=== PATIENT | female | born 1980 | race Caucasian/White ===

== ENCOUNTER 2016-10-07 20:09 | Inpatient (IN) | payer SELFPAY ==
[2016-10-07 20:37] VITALS: BMI 48.4
[2016-10-07 21:11] LABS: LEUKOCYTES/URINE 2+ (NEGATIVE); NITRITE/URINE NEG (NEGATIVE); URINE OCCULT BLOOD 3+ (NEG/TRACE)
[2016-10-07 21:12] LABS: RBC/URINE 20-30 (0-5)
[2016-10-07 21:12] LABS: BLOOD UREA NITROGEN 7 MG/DL (7-17); CALCIUM 8.8 MG/DL (8.4-10.2); CALCULATED OSMOLALITY 268 MOs/Kg (270-290); CHLORIDE 102 mEq/L (98-107); GLUCOSE 141 MG/DL (70-99); SODIUM LEVEL 139 mEq/L (137-146); TOTAL PROTEIN 7.6 G/DL (6.3-8.2)
--- NOTE | 2016-10-07 21:37 | DIRPT ---
CLINICAL DATA: Acute onset of generalized abdominal pain, constipation and difficulty with urination. Initial encounter. EXAM: DG ABDOMEN ACUTE W/ 1V CHEST COMPARISON: Chest and abdominal radiographs performed 06/30/2010, and chest radiograph performed 05/25/2016 FINDINGS: The lungs are well-aerated. Mild vascular congestion is noted. There is no evidence of focal opacification, pleural effusion or pneumothorax. The cardiomediastinal silhouette is within normal limits. The visualized bowel gas pattern is unremarkable. Scattered stool and air are seen within the colon; there is no evidence of small bowel dilatation to suggest obstruction. No free intra-abdominal air is identified on the provided upright view. No acute osseous abnormalities are seen; the sacroiliac joints are unremarkable in appearance. An intrauterine device is noted overlying the mid pelvis. IMPRESSION: 1. Mild vascular congestion noted. Lungs remain grossly clear. 2. Unremarkable bowel gas pattern; no free intra-abdominal air seen. Moderate amount of stool noted in the colon. Electronically Signed By: Rowdy Zheng M.D. On: 10/07/2016 21:34
[2016-10-07 21:40] LABS: SEG NEUTROPHIL 83 % (45-76)
[2016-10-07] MEDS ORDERED: ONDANSETRON HCL 4 MG/2 ML VIAL IV STA (22:49)
[2016-10-07] MEDS ORDERED: SODIUM CHLORIDE 0.9% 3 ML FLUSH FLUSH PRN (22:49)
[2016-10-07] MEDS ORDERED: MORPHINE 4 MG/ML INJECTION IV ONE (22:49)
[2016-10-07] MEDS ORDERED: NS 1,000 ML IV ONE (22:49)
--- NOTE | 2016-10-07 22:52 | EDPRACDOC ---
- General Information Chief Complaint: Abdominal Pain Stated Complaint: CONSTIPATION Time Seen by Provider: 10/07/16 22:35 Information Source: Patient Mode Of Arrival: Car Home Medications: Home Medications Albuterol Sulfate [Ventolin] 3 ml NEB TID PRN 10/10/12 Albuterol Sulfate [Albuterol Sulfate Hfa] 1 - 2 puff INH Q4H PRN #1 each Acetaminophen Ex Str Tablet [TYLENOL EXTRA STRENGTH Tablet] 1,000 mg PO Q6H PRN 05/25/16 Acetaminophen with Codeine [TYLENOL WITH CODEINE; [employer] with Codeine] 5 ml PO Q4-6H PRN #120 ml 05/25/16 Ibuprofen [Motrin Ib] 1,200 mg PO .PRN PRN 05/25/16 Levofloxacin [Levaquin] 750 mg PO DAILY #7 tab 05/25/16 Lorazepam [Ativan] 1 mg PO TID #30 tab 05/25/16 Nebulizer [Erapid Nebulizer] 1 each MC .UNKNOWN 05/25/16 Ondansetron HCl [Zofran] 4 mg PO Q6H PRN #20 tab 05/25/16 Prednisone [Deltasone, Orasone] 2 tabs PO DAILY #20 tab 05/25/16 Allergies/Adverse Reactions: Allergies Allergy/AdvReac Type Severity Reaction Status Date / Time doxycycline Allergy LIP Verified 05/25/16 13:36 SWELLING Penicillins Allergy Rash-Genera Verified 05/25/16 13:36 lized - 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 RECENTLY WAS CONSTIPATED SO TOOK LAXATIVE AT 1500 TODAY WITH RESULTANT DIARRHEA. Pain Location: Reports: Diffuse Pain Context: Reports: Spontaneous Pain Severity: Moderate Pain Quality: Reports: Aching Pain Radiation: Reports: No Radiation Last Menstrual Period: IUD : (IUD) Female Abdominal History: Reports: UTI Female Associated Signs & Symptoms: Reports: Nausea, Diarrhea, Melena. Denies: Vomiting, Fever Oral Intake: Decreased ED Past Medical History - History Reviewed Yes Nurses notes reviewed and agree except as marked - Patient Medical History Cardiac History: Reports: Syncope Respiratory History: Reports: Asthma (since 16 yo.), Pneumonia (Pneumonia 3 years ago) GI/ History: Reports: Urinary Tract Infection Musculoskeletal History: Reports: Arthritis (KNEE) Psychological History: Reports: Anxiety. Denies: Depression, Substance Use Disorder Systemic History: Reports: Diabetes (had borderline diabetes. DIET CONTROLLED) - Family Medical History Reports: Hypertension (Mother and father), Diabetes (Mother), Cancer (PARENTS), Stroke (Mother and father), Cardiac Disorders (Mother and father) - Social Medical History Smoking Status: Heavy tobacco smoker (5 or more cigarettes/day or daily pipe/ cigar) Social History: Denies: Substance Use Disorder Lives In: Home EDM Review of Systems - Review of Systems ROS Negative Except as Marked: Yes All systems reviewed and were negative except as marked Constitutional: Fatigue. negative: Fever Respiratory: negative: Shortness of Breath Cardiovascular: negative: Chest Pain Gastrointestinal: Diarrhea, Melena, Nausea, Pain. negative: Vomiting Genitourinary: Dysuria - Physical Exam Constitutional: Alert Oriented to: Time, Person, Place Last recorded Vital Signs: Last Vital Signs Temp 98.6 F 10/07/16 20:34 Pulse 102 10/07/16 23:30 Resp 18 10/07/16 23:30 BP 112/53 L 10/07/16 23:30 Pulse Ox 94 10/07/16 23:30 Oxygen Pulse Oxygen Saturation 94 O2 Device Room Air Oxygen Flow Rate Fraction of Inspired Oxygen ( FIO2) - HEENT Head: negative: Deformity, Laceration Eye Exam: negative: Conjunctival Injection, Pale Conjunctiva Oropharynx: negative: Membranes Dry Nose: negative: Congestion, Discharge Neck: negative: Limited ROM - Respiratory/Cardiovascular Respiratory: Normal - CTA. negative: Accessory Muscle Use, Diminished, Tachypnea Cardiovascular: negative: Bradycardia, Tachycardia, Irregular - GI Auscultation: Increased Palpation: Normal Tenderness: Diffuse, Mild. negative: Guarding, Rebound - Musculoskeletal Extremities: Radial Pulse (PALPABLE) - Integumentary Skin: Warm, Dry. negative: Rash - Neurologic Memory Impaired: Normal Motor Function: Normal Mood Description: Anxious Thought: Coherent Perception: Normal - Results 10/07/16 20:56 10/07/16 20:56 WBC 22.5 xk/uL (3.8-10.8) H 10/07/16 20:56 RBC 4.72 xM/uL (4.20-5.40) 10/07/16 20:56 Hgb 13.3 g/dL (12.0-16.0) 10/07/16 20:56 Hct 41.2 % (36-47) 10/07/16 20:56 MCV 87 fL (81-99) 10/07/16 20:56 MCH 28.2 pg (27-32) 10/07/16 20:56 MCHC 32.3 g/dl (33-36) L 10/07/16 20:56 RDW 13.8 % (11.5-14.5) 10/07/16 20:56 Plt Count 237 xk/uL (130-400) 10/07/16 20:56 MPV 10.0 fL (7.4-10.4) 10/07/16 20:56 Neut % (Auto) Cancelled 10/07/16 20:56 Lymph % (Auto) Cancelled 10/07/16 20:56 Becker % (Auto) Cancelled 10/07/16 20:56 Eos % (Auto) Cancelled 10/07/16 20:56 Baso % (Auto) Cancelled 10/07/16 20:56 Absolute Neuts (auto) Cancelled 10/07/16 20:56 Absolute Lymphs (auto) Cancelled 10/07/16 20:56 Seg Neuts % (Manual) 83 % (45-76) H 10/07/16 20:56 Band Neutrophils % 0 % (0-5) 10/07/16 20:56 Lymphocytes % (Manual) 10 % (17-44) L 10/07/16 20:56 Monocytes % (Manual) 5 % (0-10) 10/07/16 20:56 Eosinophils % (Manual) 2 % (0-5) 10/07/16 20:56 Absolute Neutrophils 18.68 xk/uL (1.7-8.2) H 10/07/16 20:56 Absolute Lymphocytes 2.25 xk/uL (0.65-4.75) 10/07/16 20:56 Vacuolated Neuts Few 10/07/16 20:56 Platelet Estimate Norm (NORMAL) 10/07/16 20:56 RBC Morphology Norm 10/07/16 20:56 Sodium 139 mEq/L (137-146) 10/07/16 20:56 Potassium 4.0 mEq/L (3.5-5.1) 10/07/16 20:56 Chloride 102 mEq/L (98-107) 10/07/16 20:56 Carbon Dioxide 26 mMOL/L (22-33) 10/07/16 20:56 Anion Gap 15 mEq/L (8-16) 10/07/16 20:56 BUN 7 MG/DL (7-17) 10/07/16 20:56 Creatinine 0.50 MG/DL (0.52-1.04) L 10/07/16 20:56 Estimated GFR (MDRD) > 60 mL/min (>=60) 10/07/16 20:56 Glucose 141 MG/DL (70-99) H 10/07/16 20:56 Calculated Osmolality 268 MOs/Kg (270-290) L 10/07/16 20:56 Calcium 8.8 MG/DL (8.4-10.2) 10/07/16 20:56 Corrected Calcium 9.0 MG/DL (8.4-10.2) 10/07/16 20:56 Total Bilirubin 0.3 MG/DL (0.2-1.3) 10/07/16 20:56 AST 12 IU/L (14-36) L 10/07/16 20:56 ALT 23 IU/L (9-52) 10/07/16 20:56 Alkaline Phosphatase 84 IU/L (38-126) 10/07/16 20:56 Total Protein 7.6 G/DL (6.3-8.2) 10/07/16 20:56 Albumin 3.8 G/DL (3.5-5.0) 10/07/16 20:56 Lipase 19 U/L (23-300) L 10/07/16 20:56 Urine Color Yellow 10/07/16 20:45 Urine Clarity Sl cldy 10/07/16 20:45 Urine pH 7.0 (5.0-8.0) 10/07/16 20:45 Ur Specific Wilson 1.015 (1.003-1.035) 10/07/16 20:45 Urine Protein 1+ (NEG/TRACE) H 10/07/16 20:45 Urine Glucose (UA) Neg (NEGATIVE) 10/07/16 20:45 Urine Ketones Neg (NEGATIVE) 10/07/16 20:45 Urine Occult Blood 3+ (NEG/TRACE) H 10/07/16 20:45 Urine Nitrite Neg (NEGATIVE) 10/07/16 20:45 Urine Bilirubin Neg (NEGATIVE) 10/07/16 20:45 Urine Urobilinogen 2 MG/DL (0-1) H 10/07/16 20:45 Ur Leukocyte Esterase 2+ (NEGATIVE) H 10/07/16 20:45 Urine RBC 20-30 (0-5) H 10/07/16 20:45 Urine WBC 10-20 (0-5) H 10/07/16 20:45 Ur Epithelial Cells 4+ 10/07/16 20:45 Urine Bacteria Few (NEG/FEW) 10/07/16 20:45 Urine Mucus Occ (NEG/OCC) 10/07/16 20:45 Urine Test Neg (NEGATIVE) 10/07/16 20:45 Lab Results 10/07/16 10/07/16 10/07/16 20:56 20:56 20:45 WBC 22.5 H RBC 4.72 Hgb 13.3 Hct 41.2 MCV 87 MCH 28.2 MCHC 32.3 L RDW 13.8 Plt Count 237 MPV 10.0 Neut % (Auto) Cancelled Lymph % (Auto) Cancelled Becker % (Auto) Cancelled Eos % (Auto) Cancelled Baso % (Auto) Cancelled Absolute Neuts (auto) Cancelled Absolute Lymphs (auto) Cancelled Seg Neuts % (Manual) 83 H Band Neutrophils % 0 Lymphocytes % (Manual) 10 L Monocytes % (Manual) 5 Eosinophils % (Manual) 2 Absolute Neutrophils 18.68 H Absolute Lymphocytes 2.25 Vacuolated Neuts Few Platelet Estimate Norm RBC Morphology Norm Sodium 139 Potassium 4.0 Chloride 102 Carbon Dioxide 26 Anion Gap 15 BUN 7 Creatinine 0.50 L Estimated GFR (MDRD) > 60 Glucose 141 H Calculated Osmolality 268 L Calcium 8.8 Corrected Calcium 9.0 Total Bilirubin 0.3 AST 12 L ALT 23 Alkaline Phosphatase 84 Total Protein 7.6 Albumin 3.8 Lipase 19 L Urine Color Yellow Urine Clarity Sl cldy Urine pH 7.0 Ur Specific Wilson 1.015 Urine Protein 1+ H Urine Glucose (UA) Neg Urine Ketones Neg Urine Occult Blood 3+ H Urine Nitrite Neg Urine Bilirubin Neg Urine Urobilinogen 2 H Ur Leukocyte Esterase 2+ H Urine RBC 20-30 H Urine WBC 10-20 H Ur Epithelial Cells 4+ Urine Bacteria Few Urine Mucus Occ Urine Test 10/07/16 20:45 WBC RBC Hgb Hct MCV MCH MCHC RDW Plt Count MPV Neut % (Auto) Lymph % (Auto) Becker % (Auto) Eos % (Auto) Baso % (Auto) Absolute Neuts (auto) Absolute Lymphs (auto) Seg Neuts % (Manual) Band Neutrophils % Lymphocytes % (Manual) Monocytes % (Manual) Eosinophils % (Manual) Absolute Neutrophils Absolute Lymphocytes Vacuolated Neuts Platelet Estimate RBC Morphology Sodium Potassium Chloride Carbon Dioxide Anion Gap BUN Creatinine Estimated GFR (MDRD) Glucose Calculated Osmolality Calcium Corrected Calcium Total Bilirubin AST ALT Alkaline Phosphatase Total Protein Albumin Lipase Urine Color Urine Clarity Urine pH Ur Specific Wilson Urine Protein Urine Glucose (UA) Urine Ketones Urine Occult Blood Urine Nitrite Urine Bilirubin Urine Urobilinogen Ur Leukocyte Esterase Urine RBC Urine WBC Ur Epithelial Cells Urine Bacteria Urine Mucus Urine Test Neg - Departure Yes I personally saw and evaluated the patient. Disposition: Admit IP To This Hospital Condition: Stable Final Diagnosis: Abscess of sigmoid colon Instructions: Acute Abdominal Pain (ED)
[2016-10-07] MEDS ORDERED: Pharmacy Review for Metformin - IV Contrast Given SCH (23:00)
[2016-10-08] MEDS ORDERED: Metronidazole 500 mg/100 ml 500 MG/100 ML RTU IV ONE (00:32)
--- NOTE | 2016-10-08 00:35 | DIRPT ---
CLINICAL DATA: Acute onset of generalized abdominal pain and rectal bleeding. No bowel movements for 1 week. Initial encounter. EXAM: CT ABDOMEN AND PELVIS WITH CONTRAST TECHNIQUE: Multidetector CT imaging of the abdomen and pelvis was performed using the standard protocol following bolus administration of intravenous contrast. CONTRAST: 100 mL of Isovue 370 IV contrast COMPARISON: Pelvic ultrasound performed 09/30/2010 FINDINGS: The visualized lung bases are clear. The liver and spleen are unremarkable in appearance. The gallbladder is within normal limits. The pancreas and adrenal glands are unremarkable. A small 3 mm stone is noted at the lower pole of the left kidney. The kidneys are otherwise unremarkable. There is no evidence of hydronephrosis. No obstructing ureteral stones are seen. No perinephric stranding is appreciated. The small bowel is unremarkable in appearance. The stomach is within normal limits. No acute vascular abnormalities are seen. Diffuse soft tissue inflammation is noted about the distal sigmoid colon and rectum, with diffuse presacral stranding and edema. There is a small focal 3.6 x 2.8 x 3.5 cm abscess noted at the pelvic cul-de-sac, directly adjacent to the distal sigmoid colon. It is difficult to determine whether this is outside of the colon or within the colonic wall. Given its location, this would not be amenable to percutaneous drainage. This could reflect sequelae of diverticulitis or unusual colitis. Minimal soft tissue inflammation extends about the ovaries and uterus, though the uterus is otherwise grossly unremarkable. An intrauterine device is noted in expected position at the fundus of the uterus. The appendix is not well characterized. There is no evidence of appendicitis. Mild diverticulosis is noted along the descending and proximal sigmoid colon. The bladder is mildly distended and grossly unremarkable. No inguinal lymphadenopathy is seen. No acute osseous abnormalities are identified. IMPRESSION: 1. Small focal 3.6 x 2.8 x 3.5 cm abscess at the pelvic cul-de-sac, directly adjacent to the distal sigmoid colon. It is difficult to determine whether this is outside the colon or within the colonic wall. Given its location, this would not be amenable to percutaneous drainage, though transrectal approach could be considered if drainage is deemed clinically necessary. 2. Diffuse soft tissue inflammation about the distal sigmoid colon and rectum, with diffuse presacral stranding and edema. This could reflect sequelae of diverticulitis or unusual colitis. Minimal soft tissue inflammation extends about the ovaries and uterus. 3. 3 mm nonobstructing stone at the lower pole of the left kidney. 4. These results were called by telephone at the time of interpretation on 10/08/2016 at 12:[address] MARYAM GRANADOS, who verbally acknowledged these results. Electronically Signed By: Rowdy Zheng M.D. On: 10/08/2016 00:33
[2016-10-08] MEDS ORDERED: NS 1,000 ML IV ONE (00:47)
[2016-10-08] MEDS ORDERED: Levofloxacin 750 mg/150 ml D5W 750 MG/150 ML RTU IV ONE (00:49)
[2016-10-08] MEDS ORDERED: Albuterol/Ipratropium Neb 3 ML NEB NEB PRN (01:40)
[2016-10-08] MEDS ORDERED: GLUCAGON 1 MG VIAL SQ PRN (01:40)
[2016-10-08] MEDS ORDERED: GLUCOSE (ORAL GEL) 15 GM TUBE PO PRN (01:40)
[2016-10-08] MEDS ORDERED: DEXTROSE 25 GM/50 ML PFS IV PRN (01:40)
[2016-10-08] MEDS ORDERED: BENZONATATE 100 MG PERLES PO PRN (01:40)
[2016-10-08] MEDS ORDERED: GUAIFENESIN 200 MG/10 ML UDC PO PRN (01:40)
--- NOTE | 2016-10-08 01:40 | HISTPHYS ---
- Chief Complaint abdominal pain - History of Present Illness Ms Montelongo is a 35-year-old white female with history of obesity who presents to the emergency room with complaint of abdominal pain and feelings of constipation. She takes no medications regularly other than smoking marijuana for anxiety and denies any significant chronic medical problems. She was recently treated with antibiotics for an episode of bronchitis approximately 2 weeks ago. She initially had some diarrhea after the antibiotics but over the last week she has mostly had problems with constipation. She took some laxatives yesterday with no relief and her pain persisted so she decided to come to the emergency room. In the emergency room she was found to have a 3 x 3 cm abscess in her distal sigmoid colon. It is unclear whether this abscess is within the colonic wall or outside the colon. They did feel that it was not amenable to percutaneous drainage. She has an elevated white count of 22 and given her pain and abscess she will be admitted to the hospital for IV antibiotics and surgical consultation. - Medical History Cardiac History: Reports: Syncope Respiratory History: Reports: Asthma (since 16 yo.), Pneumonia (Pneumonia 3 years ago) GI/ History: Reports: Urinary Tract Infection Musculoskeletal History: Reports: Arthritis (KNEE) Systemic History: Reports: Diabetes (Diet control) Neurological History: Reports: No Significant History Psychological History: Reports: Anxiety. Denies: Depression, Substance Use Disorder - Surgical History Reports: No Significant History - Medictions/Allergies Allergies doxycycline Allergy (Verified 05/25/16 13:36) LIP SWELLING Penicillins Allergy (Verified 05/25/16 13:36) Rash-Generalized PT STATES PENICILLIN DOES NOT HELP HER GET BETTER Current Medication List: Reviewed Home Medications Albuterol Sulfate [Ventolin] 3 ml NEB TID PRN 10/10/12 Albuterol Sulfate [Albuterol Sulfate Hfa] 1 - 2 puff INH Q4H PRN #1 each Acetaminophen Ex Str Tablet [TYLENOL EXTRA STRENGTH Tablet] 1,000 mg PO Q6H PRN 05/25/16 Acetaminophen with Codeine [TYLENOL WITH CODEINE; [employer] with Codeine] 5 ml PO Q4-6H PRN #120 ml 05/25/16 Ibuprofen [Motrin Ib] 1,200 mg PO .PRN PRN 05/25/16 Levofloxacin [Levaquin] 750 mg PO DAILY #7 tab 05/25/16 Lorazepam [Ativan] 1 mg PO TID #30 tab 05/25/16 Nebulizer [Erapid Nebulizer] 1 each MC .UNKNOWN 05/25/16 Ondansetron HCl [Zofran] 4 mg PO Q6H PRN #20 tab 05/25/16 Prednisone [Deltasone, Orasone] 2 tabs PO DAILY #20 tab 05/25/16 - Family History Reports: Hypertension (Mother and father), Diabetes (Mother), Cancer (PARENTS), Stroke (Mother and father), Cardiac Disorders (Mother and father) - Social History Lives: Alone Smoking Status: Light tobacco smoker (less than 5/day) Social History: Denies: Alcohol Use, Substance Use Disorder - Review of Systems Yes All systems reviewed and were negative except as marked Constitutional: Fatigue, Loss of Appetite, Weakness. negative: Fever - Eyes No Symptoms Reported. negative: Blurred Vision, Double Vision, Discharge, Redness, Vision Loss - Ears No Symptoms Reported. negative: Drainage, Hearing Loss, Pain - Nose No Symptoms Reported. negative: Abrasion, Bleeding, Congestion - Mouth Mouth: No Symptoms Reported. negative: Pain, Drooling, Denture, Tooth Pain, Erythema - Throat/Neck No Symptoms Reported. negative: Pain, Swelling, Hoarseness, Snoring - Respiratory Cough. negative: Shortness of Breath, Wheezing - Cardiovascular No Symptoms Reported. negative: Chest Pain, Orthopnea, Palpitations - Gastrointestinal Gastrointestinal: Abdominal Pain, Constipation - Genitourinary Genitourinary: No Symptoms Reported. negative: Bleeding, Dysuria, Discharge - Neurological No Symptoms Reported. negative: Dizziness, Gait Difficulty, Seizure, Speech Difficulty - Musculoskeletal Musculoskeletal:: No Symptoms Reported. negative: Chronic low back pain, Arthritis, Stiffness, Gout - Integumentary No Symptoms Reported. negative: Bruising, Rash, Wound - Allergic/Immunologic No Symptoms Reported. negative: Hives, Itching - Hematologic No Symptoms Reported. negative: Lymphadenopathy, Easy Bruising, Easy Bleeding - Endocrine No Symptoms Reported. negative: Weight Gain, Weight Loss, Heat Intolerance, Cold Intolerance - Psychiatric Anxiety - Physical Exam Constitutional: No apparent distress, Alert, Well nourished, Well appearing Oriented to: Time, Person, Place Exam: Last Vital Signs Temp 98.6 F 10/07/16 20:34 Pulse 93 10/08/16 00:30 Resp 18 10/08/16 00:30 BP 120/56 L 10/08/16 00:30 Pulse Ox 98 10/08/16 00:30 Intake & Output 10/07/16 10/07/16 10/08/16 15:59 23:59 07:59 Patient's weight 116.301 kg - HEENT Head: Normal. negative: Deformity, Laceration Eye: Normal. negative: Conjunctival Injection, Pale Conjunctiva Oropharynx: Normal. negative: Membranes Dry Nose: negative: Congestion, Discharge - Respiratory/Cardiovascular Respiratory: Normal - CTA. negative: Accessory Muscle Use, Diminished, Rhonchi , Tachypnea, Wheezes Cardiovascular: Tachycardia - GI Auscultation: Increased Palpation: Normal Tenderness: Moderate, LLQ. negative: Guarding, Rebound - Musculoskeletal Back: Normal. negative: Abrasion, Ecchymosis Extremities: Normal, Femoral Pulse, Pedal Pulse, Radial Pulse (PALPABLE). negative: Calf Tenderness - Integumentary Skin: Normal, Warm, Dry. negative: Rash Lymphatics: Normal. negative: Adenopathy - Neurologic Memory Impaired: Normal Motor Function: Normal Cranial Nerve: Normal Cerebellar: Normal Mood Description: Anxious Thought: Coherent Perception: Normal - Focused CV Perfusion Exam Vital Signs: Last Vital Signs Temp 98.6 F 10/07/16 20:34 Pulse 93 10/08/16 00:30 Resp 18 10/08/16 00:30 BP 120/56 L 10/08/16 00:30 Pulse Ox 98 10/08/16 00:30 - Lab Results Laboratory Results - last 24 hr 10/07/16 10/07/16 10/07/16 20:45 20:45 20:56 WBC RBC Hgb Hct MCV MCH MCHC RDW Plt Count MPV Neut % (Auto) Lymph % (Auto) Addison % (Auto) Eos % (Auto) Baso % (Auto) Absolute Neuts (auto) Absolute Lymphs (auto) Seg Neuts % (Manual) Band Neutrophils % Lymphocytes % (Manual) Monocytes % (Manual) Eosinophils % (Manual) Absolute Neutrophils Absolute Lymphocytes Vacuolated Neuts Platelet Estimate RBC Morphology Sodium 139 Potassium 4.0 Chloride 102 Carbon Dioxide 26 Anion Gap 15 BUN 7 Creatinine 0.50 L Estimated GFR (MDRD) > 60 Glucose 141 H Calculated Osmolality 268 L Calcium 8.8 Corrected Calcium 9.0 Total Bilirubin 0.3 AST 12 L ALT 23 Alkaline Phosphatase 84 Total Protein 7.6 Albumin 3.8 Lipase 19 L Urine Color Yellow Urine Clarity Sl cldy Urine pH 7.0 Ur Specific [place] 1.015 Urine Protein 1+ H Urine Glucose (UA) Neg Urine Ketones Neg Urine Occult Blood 3+ H Urine Nitrite Neg Urine Bilirubin Neg Urine Urobilinogen 2 H Ur Leukocyte Esterase 2+ H Urine RBC 20-30 H Urine WBC 10-20 H Ur Epithelial Cells 4+ Urine Bacteria Few Urine Mucus Occ Urine Test Neg 10/07/16 20:56 WBC 22.5 H RBC 4.72 Hgb 13.3 Hct 41.2 MCV 87 MCH 28.2 MCHC 32.3 L RDW 13.8 Plt Count 237 MPV 10.0 Neut % (Auto) Cancelled Lymph % (Auto) Cancelled Addison % (Auto) Cancelled Eos % (Auto) Cancelled Baso % (Auto) Cancelled Absolute Neuts (auto) Cancelled Absolute Lymphs (auto) Cancelled Seg Neuts % (Manual) 83 H Band Neutrophils % 0 Lymphocytes % (Manual) 10 L Monocytes % (Manual) 5 Eosinophils % (Manual) 2 Absolute Neutrophils 18.68 H Absolute Lymphocytes 2.25 Vacuolated Neuts Few Platelet Estimate Norm RBC Morphology Norm Sodium Potassium Chloride Carbon Dioxide Anion Gap BUN Creatinine Estimated GFR (MDRD) Glucose Calculated Osmolality Calcium Corrected Calcium Total Bilirubin AST ALT Alkaline Phosphatase Total Protein Albumin Lipase Urine Color Urine Clarity Urine pH Ur Specific [place] Urine Protein Urine Glucose (UA) Urine Ketones Urine Occult Blood Urine Nitrite Urine Bilirubin Urine Urobilinogen Ur Leukocyte Esterase Urine RBC Urine WBC Ur Epithelial Cells Urine Bacteria Urine Mucus Urine Test - Assessment (1) Abscess of sigmoid colon K63.0 - ABSCESS OF INTESTINE Acute Present on Admission: Yes Admit. IV Levaquin and Flagyl. Will have surgery see in consultation. Morphine as needed for pain. (2) Abdominal pain R10.9 - UNSPECIFIED ABDOMINAL PAIN Acute Present on Admission: Yes Qualifiers: Abdominal location: left lower quadrant Qualified Code(s): R10.32 - Left lower quadrant pain From diverticular abscess. IV morphine as needed. Treat infection (3) Diet-controlled diabetes mellitus E11.9 - TYPE 2 DIABETES MELLITUS WITHOUT COMPLICATIONS Acute Present on Admission: Yes Would greatly benefit from weight loss. Blood sugars are relatively stable here. Will check hemoglobin A1c. She is going to be on a full liquid low carb diet (4) Morbid obesity with BMI of 45.0-49.9, adult E66.01 - MORBID (SEVERE) OBESITY DUE TO EXCESS CALORIES; Z68.42 - BODY MASS INDEX (BMI) 45.0-49.9, ADULT Acute Present on Admission: Yes Counseled proper diet and weight loss. (5) Anxiety F41.9 - ANXIETY DISORDER, UNSPECIFIED Acute Present on Admission: Yes Smokes marijuana for this. P.r.n. anxiolytics (6) Leukocytosis D72.829 - ELEVATED WHITE BLOOD CELL COUNT, UNSPECIFIED Acute Present on Admission: Yes Qualifiers: Leukocytosis type: unspecified Qualified Code(s): D72.829 - Elevated white blood cell count, unspecified White blood cell count is significantly elevated. She has not been on steroids recently so I suspect that this is all related to infection. Case Care Discussed with: Patient
[2016-10-08] MEDS ORDERED: ENOXAPARIN 40 MG/0.4 ML PFS SQ SCH (02:00)
[2016-10-08] MEDS: MORPHINE 2 MG/ML INJECTION IV PRN ×6 (02:39→23:07)
[2016-10-08] MEDS: NS/KCl 20 mEq 1,000 ML IV SCH ×4 (03:25→22:05)
[2016-10-08] MEDS ORDERED: Vaccine Screening Complete SCH (04:00)
[2016-10-08] MEDS: SODIUM CHLORIDE 0.9% 3 ML FLUSH FLUSH SCH ×2 (06:41→16:59)
[2016-10-08] MEDS: NICOTINE 21 MG PATCH TOP SCH (06:41)
[2016-10-08] MEDS: REGULAR INSULIN 100 UNITS/ML - 3 ML VIAL SQ SCH ×4 (06:42→20:23)
[2016-10-08] MEDS: Metronidazole 500 mg/100 ml 500 MG/100 ML RTU IV SCH ×2 (08:30→16:59)
--- NOTE | 2016-10-08 08:32 | PCM.SURGCO ---
Consultation Date: 10/08/16 Requesting Physician: Gurinder Bañuelos Bending Frame Operator: Favio Amezcua Consult Reason: Abdominal Pain, Other (Pelvic abscess) - History of Present Illness 35-year-old female with history of morbid obesity who presented the emergency department with abdominal pain and a feeling of fullness and constipation. She reportedly does not take medications or is noncompliant with her medications. She does smoke marijuana to "help me sleep". She also states that she has some anxiety issues. She was on an antibiotic for a sinus infection/bronchitis recently. She developed some diarrhea which subsequently turned into constipation. She feels a pressure in her pelvic area and some pain. She had no fevers. She has no nausea or vomiting. She is not anorexic. She decided to come to the emergency department for evaluation. Evaluation there revealed a leukocytosis and also CT scan of the abdomen pelvis revealed an approximately 3 cm abscess in the presacral area. It was felt that this was not amenable to percutaneous drainage. Patient has multiple comorbid conditions and she was subsequently admitted to the medicine service with surgical consultation to me. Patient is feeling better than upon her original presentation. She states her pain is much less. Pain medication makes the pain better. Try to have a bowel movement makes the pain worse. Chief Complaint: abdominal pain - Past Medical and Surgical History Cardiac History: Reports: Syncope Respiratory History: Reports: Asthma (since 16 yo.), Pneumonia (Pneumonia 3 years ago) GI/ History: Reports: Urinary Tract Infection Musculoskeletal History: Reports: Arthritis (KNEE) Psychological History: Reports: Anxiety. Denies: Depression Past Surgical History: Reports: Appendectomy, Other (Surgery for an ACL tear) Allergies doxycycline Allergy (Verified 05/25/16 13:36) LIP SWELLING Penicillins Allergy (Verified 05/25/16 13:36) Rash-Generalized PT STATES PENICILLIN DOES NOT HELP HER GET BETTER Home Medications Albuterol Sulfate [Ventolin] 3 ml NEB TID PRN 10/10/12 Albuterol Sulfate [Albuterol Sulfate Hfa] 1 - 2 puff INH Q4H PRN #1 each Acetaminophen Ex Str Tablet [TYLENOL EXTRA STRENGTH Tablet] 1,000 mg PO Q6H PRN 05/25/16 Acetaminophen with Codeine [TYLENOL WITH CODEINE; [employer] with Codeine] 5 ml PO Q4-6H PRN #120 ml 05/25/16 Ibuprofen [Motrin Ib] 1,200 mg PO .PRN PRN 05/25/16 Levofloxacin [Levaquin] 750 mg PO DAILY #7 tab 05/25/16 Lorazepam [Ativan] 1 mg PO TID #30 tab 05/25/16 Nebulizer [Erapid Nebulizer] 1 each MC .UNKNOWN 05/25/16 Ondansetron HCl [Zofran] 4 mg PO Q6H PRN #20 tab 05/25/16 Prednisone [Deltasone, Orasone] 2 tabs PO DAILY #20 tab 05/25/16 - Social History Smoking Status: Light tobacco smoker (less than 5/day) Social History: Reports: Marijuana Use - Family History Reports: Hypertension (Mother and father), Diabetes (Mother), Cancer (PARENTS), Stroke (Mother and father), Cardiac Disorders (Mother and father) - Review of Systems Yes All systems reviewed and were negative except as marked Gastrointestinal: Abdominal Pain, Constipation - Physical Exam Vital Signs: Initial Vitals Temperature 98.6 F 10/07/16 20:34 Pulse Rate 99 10/07/16 20:34 Respiratory Rate 20 10/07/16 20:34 Blood Pressure 155/70 10/07/16 20:34 Pulse Oxygen Saturation 99 10/07/16 20:34 Exam: General: Pleasant female No acute distress. HEENT: Normocephalic atraumatic. Sclerae nonicteric. Extraocular movements intact. Oral mucosa pink and moist. Neck: Supple. Nontender. Good range of motion. No masses. Trachea is midline. No cervical adenopathy. Lungs: Clear to auscultation. No rhonchi or wheezing. Good excursion. Heart: Regular rate and rhythm. No murmurs or rubs. Abdomen: Soft, morbidly obese, nondistended. No hepatosplenomegaly. No abdominal wall defects or masses. No particular tenderness on her abdominal exam today. Groins: No hernias or masses. Back: No CVA tenderness. No ecchymosis. Extremities: no cyanosis clubbing or edema. No palpable deformities. Vascular: Dorsalis pedis and posterior tibial pulses palpable bilaterally. Skin: Warm and dry, no erythema , no ulcerations. No jaundice - Lab Results 10/07/16 20:56 10/07/16 20:56 - Diagnostic Findings EXAM: CT ABDOMEN AND PELVIS WITH CONTRAST TECHNIQUE: Multidetector CT imaging of the abdomen and pelvis was performed using the standard protocol following bolus administration of intravenous contrast. CONTRAST: 100 mL of Isovue 370 IV contrast COMPARISON: Pelvic ultrasound performed 09/30/2010 FINDINGS: The visualized lung bases are clear. The liver and spleen are unremarkable in appearance. The gallbladder is within normal limits. The pancreas and adrenal glands are unremarkable. A small 3 mm stone is noted at the lower pole of the left kidney. The kidneys are otherwise unremarkable. There is no evidence of hydronephrosis. No obstructing ureteral stones are seen. No perinephric stranding is appreciated. The small bowel is unremarkable in appearance. The stomach is within normal limits. No acute vascular abnormalities are seen. Diffuse soft tissue inflammation is noted about the distal sigmoid colon and rectum, with diffuse presacral stranding and edema. There is a small focal 3.6 x 2.8 x 3.5 cm abscess noted at the pelvic cul-de-sac, directly adjacent to the distal sigmoid colon. It is difficult to determine whether this is outside of the colon or within the colonic wall. Given its location, this would not be amenable to percutaneous drainage. This could reflect sequelae of diverticulitis or unusual colitis. Minimal soft tissue inflammation extends about the ovaries and uterus, though the uterus is otherwise grossly unremarkable. An intrauterine device is noted in expected position at the fundus of the uterus. The appendix is not well characterized. There is no evidence of appendicitis. Mild diverticulosis is noted along the descending and proximal sigmoid colon. The bladder is mildly distended and grossly unremarkable. No inguinal lymphadenopathy is seen. No acute osseous abnormalities are identified. IMPRESSION: 1. Small focal 3.6 x 2.8 x 3.5 cm abscess at the pelvic cul-de-sac, directly adjacent to the distal sigmoid colon. It is difficult to determine whether this is outside the colon or within the colonic wall. Given its location, this would not be amenable to percutaneous drainage, though transrectal approach could be considered if drainage is deemed clinically necessary. 2. Diffuse soft tissue inflammation about the distal sigmoid colon and rectum, with diffuse presacral stranding and edema. This could reflect sequelae of diverticulitis or unusual colitis. Minimal soft tissue inflammation extends about the ovaries and uterus. 3. 3 mm nonobstructing stone at the lower pole of the left kidney. 4. These results were called by telephone at the time of interpretation on 10/08/2016 at 12:[address] MARYAM GRANADOS, who verbally acknowledged these results. Electronically Signed By: Rowdy Zheng M.D. On: 10/08/2016 00:33 - Assessment/Plan (1) Pelvic abscess in female N73.9 - FEMALE PELVIC INFLAMMATORY DISEASE, UNSPECIFIED Acute Present on Admission: Yes Comment: The exact etiology of her abscess is unclear. Would direct treatment toward the abscess currently which would consist of IV antibiotics. Will discuss further with interventional Radiology to see if this is truly not amenable to percutaneous drainage. I would not suggest transrectal drainage. If this is not amenable to percutaneous drainage, would recommend continue a course of antibiotics and reassessing clinically and radiographically. If the abscess resolves then she can simply be followed up as an outpatient. If the abscess and margins and is amenable to percutaneous drainage, could consider percutaneous drainage by Interventional Radiology. If the abscess and margins which she clinically deteriorates, could consider surgical intervention with open or laparoscopic drainage of the pelvic abscess. It is unclear of the exact etiology of the abscess. Diverticular disease of the colon is a possibility as is colitis from an antibiotic induced colitis. Abscess of a gynecologic origin is also a possibility. The patient was in stable condition at the time of this dictation. She is not toxic currently. Recommend continue conservative management at this time. (2) Morbid obesity with BMI of 45.0-49.9, adult E66.01 - MORBID (SEVERE) OBESITY DUE TO EXCESS CALORIES; Z68.42 - BODY MASS INDEX (BMI) 45.0-49.9, ADULT Chronic Present on Admission: Yes Comment: Increases her risk for any perioperative or periprocedural complications. Weight loss is highly recommended. (3) Leukocytosis D72.829 - ELEVATED WHITE BLOOD CELL COUNT, UNSPECIFIED Acute Present on Admission: Yes unspecified D72.829 - Elevated white blood cell count, unspecified Comment: Likely due to the infectious process in this patient's pelvic area. Other etiologies are possible. Continue follow white blood cell count. Continue antibiotics currently. (4) Abscess of sigmoid colon K63.0 - ABSCESS OF INTESTINE Acute Present on Admission: Yes Comment: This could certainly be the etiology of her abscess. The exact etiology is not known at this time. Continue medical management of the pelvic/sigmoid abscess at this time. Case Care Discussed with: Patient, Consultants
[2016-10-08] MEDS: ONDANSETRON HCL 4 MG/2 ML VIAL IV PRN ×2 (10:35→18:31)
[2016-10-08] MEDS: ENOXAPARIN 60 MG/0.6 ML PFS SQ SCH (16:58)
[2016-10-09] MEDS: Metronidazole 500 mg/100 ml 500 MG/100 ML RTU IV SCH ×5 (00:07→23:36)
[2016-10-09] MEDS: ONDANSETRON HCL 4 MG/2 ML VIAL IV PRN ×2 (00:12→19:54)
[2016-10-09] MEDS: ZOLPIDEM TARTRATE 5 MG TAB PO PRN ×2 (00:12→23:43)
[2016-10-09] MEDS: Levofloxacin 750 mg/150 ml D5W 750 MG/150 ML RTU IV SCH (01:37)
[2016-10-09] MEDS: NS/KCl 20 mEq 1,000 ML IV SCH ×5 (03:45→16:45)
[2016-10-09] MEDS: NICOTINE 21 MG PATCH TOP SCH (06:24)
[2016-10-09] MEDS: REGULAR INSULIN 100 UNITS/ML - 3 ML VIAL SQ SCH ×4 (06:25→21:00)
[2016-10-09] MEDS: SODIUM CHLORIDE 0.9% 3 ML FLUSH FLUSH SCH ×2 (06:25→16:45)
[2016-10-09 07:29] LABS: MPV 10.3 fL (7.4-10.4)
--- NOTE | 2016-10-09 08:07 | GENMEDPROG ---
Chief Complaint: food floats p eating c/o llq pressure is better Notes Reviewed: Yes Events from last night noted and discussed with Clinical Staff Current Medication List: Reviewed DVT Prophylaxis: Yes - Physical Examination Vital Signs and I&O: Last Vital Signs Temp 98.3 F 10/09/16 05:42 Pulse 87 10/09/16 05:42 Resp 20 10/09/16 05:42 BP 112/66 10/09/16 05:42 Pulse Ox 96 10/09/16 05:42 Oxygen Pulse Oxygen Saturation 96 O2 Device Room Air Oxygen Flow Rate Fraction of Inspired Oxygen ( FIO2) Intake & Output 10/06/16 10/07/16 10/08/16 10/09/16 23:59 23:59 23:59 23:59 Intake Total 5140 950 Output Total 1125 900 Balance 4015 50 Patient's weight 114.078 kg 114.419 kg General: Alert, Oriented x3, No acute distress, Well appearing, Well nourished HEENT: Normal (Normocephalic, atraumatic;EOMI.Sclera white, Nares patent, without discharge or bleeding. No oropharyngeal lesions or erythema. Mucous membranes are dry.) Neck: Non-tender, Full range of motion, Normal Trachea alignment, Normal inspection (No cervical lymphadenopathy. No supraclavicular lymphadenopathy.), No Masses palpable, Supple Lymphatics: Normal. negative: Adenopathy Respiratory: Normal - CTA. negative: Accessory Muscle Use, Diminished, Rhonchi , Tachypnea, Wheezes Cardiovascular: Regular rate and rhythm (No bradycardia or tachycardia), Normal S1, No Gallops,Rubs/Murmurs, Normal S2, Good Pedal Pulses (DP pulses 2+ bilaterally) GI: Normal bowel sounds, Soft, No hepatospenomegaly, No masses, Obese (Morbid obesity BMI 47.7), Tenderness (LLQ TENDER) Extremities/Musculoskeletal: Normal pulses (DP pulses 2+ bilaterally) Skin: Warm,Dry and Intact, No rashes, No significant lesion Neurological: Strength at 5/5 X4 ext (Motor 5/5 throughout.), Normal tone, Cranial nerves 3-12 NL ( 2-12 grossly intact.) Psych/Mental Status: Appropriate, Normal Affect Lab/DI/Studies Reviewed: 10/09/16 07:01 10/09/16 07:01 Laboratory Results - last 24 hr 10/08/16 10/08/16 10/08/16 11:24 16:15 20:19 WBC RBC Hgb Hct MCV MCH MCHC RDW Plt Count MPV Sodium Potassium Chloride Carbon Dioxide Anion Gap BUN Creatinine Estimated GFR (MDRD) Glucose POC Capillary Glucose 92 105 H 103 H Calculated Osmolality Calcium Corrected Calcium Total Bilirubin AST ALT Alkaline Phosphatase Total Protein Albumin 10/09/16 10/09/16 10/09/16 05:44 07:01 07:01 WBC 12.7 H RBC 4.29 Hgb 12.0 Hct 37.5 MCV 87 MCH 27.9 MCHC 31.9 L RDW 14.1 Plt Count 208 MPV 10.3 Sodium 140 Potassium 4.6 Chloride 104 Carbon Dioxide 27 Anion Gap 14 BUN 5 L Creatinine 0.50 L Estimated GFR (MDRD) > 60 Glucose 97 POC Capillary Glucose 93 Calculated Osmolality 266 L Calcium 8.5 Corrected Calcium 9.4 Total Bilirubin 0.3 AST 10 L ALT 28 Alkaline Phosphatase 75 Total Protein 6.3 Albumin 3.1 L - Assessment (1) Abscess of sigmoid colon Acute K63.0 - ABSCESS OF INTESTINE Comment/Plan: Admit. IV Levaquin and Flagyl and will probably be able to switch to p.o. tomorrow. Will have surgery see in consultation. Morphine as needed for pain. (2) Anxiety Acute F41.9 - ANXIETY DISORDER, UNSPECIFIED Comment/Plan: Smokes marijuana for this. P.r.n. anxiolytics (3) Morbid obesity with BMI of 45.0-49.9, adult Chronic E66.01 - MORBID (SEVERE) OBESITY DUE TO EXCESS CALORIES; Z68.42 - BODY MASS INDEX (BMI) 45.0-49.9, ADULT Comment/Plan: Counseled proper diet and weight loss. Morbid obesity increase her risk of perioperative complications. (4) Tobacco abuse Acute Z72.0 - TOBACCO USE Comment/Plan: 5 cig / wk discussed cessation (5) Diet-controlled diabetes mellitus Acute E11.9 - TYPE 2 DIABETES MELLITUS WITHOUT COMPLICATIONS Comment/Plan: Would greatly benefit from weight loss. Blood sugars are relatively stable here. Will check hemoglobin A1c. She is going to be on a full liquid low carb diet Case Care Discussed with: Patient, Nursing Staff Education/Counseling Given To: Patient Education/Counseling Given Regarding: Diagnosis Total Time: 37 min + 7 min smoking cessation disc Critical Care: No Code: 42256 (12+) (050)
[2016-10-09 08:09] LABS: BLOOD UREA NITROGEN 5 MG/DL (7-17); CALC CORRECTED 9.4 MG/DL (8.4-10.2); CALCIUM 8.5 MG/DL (8.4-10.2); CALCULATED OSMOLALITY 266 MOs/Kg (270-290); CHLORIDE 104 mEq/L (98-107); GLUCOSE 97 MG/DL (70-99); SODIUM LEVEL 140 mEq/L (137-146); TOTAL PROTEIN 6.3 G/DL (6.3-8.2)
[2016-10-09] MEDS: ACETAMINOPHEN 325 MG/TAB TABLET PO PRN ×3 (08:35→23:35)
[2016-10-09] MEDS: MORPHINE 2 MG/ML INJECTION IV PRN ×3 (12:24→19:56)
[2016-10-09] MEDS: NICOTINE 7 MG PATCH TOP SCH (12:45)
--- NOTE | 2016-10-09 12:52 | PCM.SURGRO ---
- Subjective Chief Complaint: pressure in left lower quadrant Hospital Day #: 2 (pelvic abscess) Patient: Reports: Feels better (Patient reports that she feels better but still has some pressure in the lower pelvis.), Tolerating liquids well, Voiding without difficulty (Patient denies pain with urination.), Flatus, Bowel Movement (Patient reports that she has had one bowel movement since admission. She reports that she had pelvic pain with the bowel movement.), Afebrile, Ambulating in Room, Other (Patient currently sitting up in chair eating.). Denies: Nausea, Vomiting, Shortness of breath - Objective / Physical Exam Vital Signs: Temperature: 98.3 F (10/09/16 05:42) HR: 87 (10/09/16 05:42)RR: 20 (10/09/16 05: 42) BP: 112/66 (10/09/16 05:42)Pulse Ox: 96 (10/09/16 05:42) General: Alert, Oriented x3, Cooperative, No acute distress HEENT: Normal Respiratory: Normal - CTA Cardiovascular: Regular rate and rhythm Gastrointestinal: Soft, Bowel Sounds, Tender (midly tender in left lower quadrant and suprapubic). negative: Distended, Guarding, Firm, Rigid, Hernia Extremities: negative: Swelling, Edema Psych/Mental Status: Appropriate, Normal Affect, Cooperative. negative: Agitated, Anxious Neurological: Normal speech Lymphatics: Normal Laboratory/Diagnostics Reviewed: 10/09/16 07:01 10/09/16 07:01 - Assessment and Plan (1) Pelvic abscess in female Acute N73.9 - FEMALE PELVIC INFLAMMATORY DISEASE, UNSPECIFIED Present on Admission: Yes Comment/Plan: The patient is hospital day #2. We will continue broad spectrum intravenous antibiotics and monitor the patient closely. There is no indication for surgical intervention at this time. The patient's white blood cell count is decreasing. I discussed the current treatment plan with the patient. All questions were answered. - Review of Systems Yes All systems reviewed and were negative except as marked (twelve systems reviewed with the patient)
[2016-10-09] MEDS: ENOXAPARIN 60 MG/0.6 ML PFS SQ SCH ×2 (16:44→16:46)
[2016-10-09] MEDS: LORAZEPAM 1 MG TAB PO SCH (19:58)
[2016-10-10] MEDS: Levofloxacin 750 mg/150 ml D5W 750 MG/150 ML RTU IV SCH (01:15)
[2016-10-10] MEDS: ZOLPIDEM TARTRATE 5 MG TAB PO PRN (01:18)
[2016-10-10] MEDS: MORPHINE 2 MG/ML INJECTION IV PRN ×4 (01:19→22:19)
[2016-10-10] MEDS: NS/KCl 20 mEq 1,000 ML IV SCH ×4 (02:47→23:01)
[2016-10-10] MEDS: SODIUM CHLORIDE 0.9% 3 ML FLUSH FLUSH SCH ×2 (05:36→16:55)
[2016-10-10] MEDS: REGULAR INSULIN 100 UNITS/ML - 3 ML VIAL SQ SCH ×4 (05:38→21:07)
[2016-10-10] MEDS: LORAZEPAM 1 MG TAB PO SCH ×3 (05:42→20:44)
[2016-10-10 07:58] LABS: AUTOMATED BASOPHIL 0.4 % (0-2); AUTOMATED EOSINOPHIL 3.5 % (0-5); AUTOMATED LYMPH 19.6 % (17-44); AUTOMATED MONOCYTE 6.8 % (3-10); AUTOMATED NEUTROPHIL 69.7 % (45-76); MPV 10.2 fL (7.4-10.4)
[2016-10-10] MEDS: Metronidazole 500 mg/100 ml 500 MG/100 ML RTU IV SCH ×2 (08:20→16:56)
[2016-10-10] MEDS: ACETAMINOPHEN 325 MG/TAB TABLET PO PRN ×2 (09:10→20:38)
[2016-10-10] MEDS: NICOTINE 7 MG PATCH TOP SCH (11:41)
--- NOTE | 2016-10-10 12:35 | GENMEDPROG ---
Chief Complaint: Moderate nausea and abdominal pain. Overall improved since admission Notes Reviewed: Yes Events from last night noted and discussed with Clinical Staff Current Medication List: Reviewed Currently: Reports: Nausea and Vomiting, Abdominal Pain. Denies: Cough, Wheezing, FISHER, SOB, Sputum, Chest Pain DVT Prophylaxis: Yes - Physical Examination Vital Signs and I&O: Last Vital Signs Temp 97.9 F 10/10/16 04:20 Pulse 74 10/10/16 04:20 Resp 18 10/10/16 04:20 BP 142/67 10/10/16 04:20 Pulse Ox 96 10/10/16 04:20 Oxygen Pulse Oxygen Saturation 96 O2 Device Room Air Oxygen Flow Rate Fraction of Inspired Oxygen ( FIO2) Intake & Output 10/07/16 10/08/16 10/09/16 10/10/16 23:59 23:59 23:59 23:59 Intake Total 5140 3120 1764 Output Total 1125 4200 1200 Balance 4015 -1080 564 Patient's weight 114.078 kg 114.419 kg General: Alert, Oriented x3, No acute distress, Well appearing, Well nourished HEENT: Normal (Normocephalic, atraumatic;EOMI.Sclera white, Nares patent, without discharge or bleeding. No oropharyngeal lesions or erythema. Mucous membranes are dry.), PERRLA, EOMI Neck: Non-tender, Full range of motion, Normal Trachea alignment, Normal inspection (No cervical lymphadenopathy. No supraclavicular lymphadenopathy.), No Masses palpable, Supple Lymphatics: Normal. negative: Adenopathy Respiratory: Normal - CTA. negative: Accessory Muscle Use, Diminished, Rhonchi , Tachypnea, Wheezes Cardiovascular: Regular rate and rhythm (No bradycardia or tachycardia), Normal S1, No Gallops,Rubs/Murmurs, Normal S2, Good Pedal Pulses (DP pulses 2+ bilaterally) GI: Normal bowel sounds, Soft, No hepatospenomegaly, No masses, Obese (Morbid obesity BMI 47.7), Tenderness (LLQ TENDER) Extremities/Musculoskeletal: Normal pulses (DP pulses 2+ bilaterally). negative : Tenderness, Swelling Skin: Warm,Dry and Intact, No rashes, No significant lesion Neurological: Strength at 5/5 X4 ext (Motor 5/5 throughout.), Normal tone, Cranial nerves 3-12 NL ( 2-12 grossly intact.) Psych/Mental Status: Appropriate, Normal Affect Lab/DI/Studies Reviewed: Laboratory Results - last 24 hr 10/09/16 10/10/16 10/10/16 20:55 05:17 07:00 WBC 10.8 RBC 4.20 Hgb 11.9 L Hct 36.7 MCV 87 MCH 28.3 MCHC 32.5 L RDW 13.7 Plt Count 231 MPV 10.2 Neut % (Auto) 69.7 Lymph % (Auto) 19.6 [place] % (Auto) 6.8 Eos % (Auto) 3.5 Baso % (Auto) 0.4 Absolute Neuts (auto) 7.45 Absolute Lymphs (auto) 2.05 POC Capillary Glucose 115 H 106 H 10/10/16 11:34 WBC RBC Hgb Hct MCV MCH MCHC RDW Plt Count MPV Neut % (Auto) Lymph % (Auto) [place] % (Auto) Eos % (Auto) Baso % (Auto) Absolute Neuts (auto) Absolute Lymphs (auto) POC Capillary Glucose 165 H - Assessment (1) Abscess of sigmoid colon Acute K63.0 - ABSCESS OF INTESTINE Comment/Plan: Continue IV antibiotics supportive care. White blood cell count has returned to normal. May need to repeat CT 1-2 days to evaluate status of abscess. (2) Abdominal pain Acute R10.9 - UNSPECIFIED ABDOMINAL PAIN Qualifiers: Abdominal location: left lower quadrant Qualified Code(s): R10.32 - Left lower quadrant pain Comment/Plan: Still some pain. Continue antibiotics and p.r.n. analgesics (3) Diet-controlled diabetes mellitus Acute E11.9 - TYPE 2 DIABETES MELLITUS WITHOUT COMPLICATIONS Comment/Plan: Would greatly benefit from weight loss. Blood sugars are relatively stable here. Will check hemoglobin A1c. She is going to be on a full liquid low carb diet (4) Morbid obesity with BMI of 45.0-49.9, adult Chronic E66.01 - MORBID (SEVERE) OBESITY DUE TO EXCESS CALORIES; Z68.42 - BODY MASS INDEX (BMI) 45.0-49.9, ADULT Comment/Plan: Counseled proper diet and weight loss. Morbid obesity increase her risk of perioperative complications. (5) Anxiety Acute F41.9 - ANXIETY DISORDER, UNSPECIFIED Comment/Plan: Smokes marijuana for this. P.r.n. anxiolytics (6) Leukocytosis Resolved D72.829 - ELEVATED WHITE BLOOD CELL COUNT, UNSPECIFIED Qualifiers: Leukocytosis type: unspecified Qualified Code(s): D72.829 - Elevated white blood cell count, unspecified Comment/Plan: Resolved. Case Care Discussed with: Patient, Consultants, Nursing Staff, Resource Management
[2016-10-10] MEDS: ONDANSETRON HCL 4 MG/2 ML VIAL IV PRN ×2 (13:54→22:15)
--- NOTE | 2016-10-10 15:03 | PCM.SURGRO ---
- Subjective Chief Complaint: [facility]: [facility] (pelvic abscess) Patient: Reports: Feels better (Patient reports that she still has a feeling of pressure in the abdomen. She denies sharp pains.), Tolerating liquids well, Flatus, Bowel Movement (Patient reports a small amount of bowel movement yesterday evening.), Nausea (Patient reports mild nausea this afternoon that has now resolved. She states that she is hungry.), Afebrile, Ambulating in Room. Denies: Diarrhea, Blood in Stool, Vomiting, Shortness of breath - Objective / Physical Exam Vital Signs: Temperature: 98.0 F (10/10/16 14:43) HR: 74 (10/10/16 14:43)RR: 20 (10/10/16 14: 43) BP: 124/64 (10/10/16 14:43)Pulse Ox: 96 (10/10/16 04:20) General: Alert, Oriented x3, Cooperative, No acute distress HEENT: Normal Respiratory: Normal - CTA Cardiovascular: Regular rate and rhythm Gastrointestinal: Soft, Bowel Sounds. negative: Distended, Tender (No severe tenderness. The patient reports that she feels pressure in the lower abdomen with palpation.), Guarding, Firm, Rigid, Hernia Extremities: negative: Swelling, Edema Psych/Mental Status: Appropriate, Normal Affect, Cooperative. negative: Agitated, Anxious Neurological: Normal speech Skin: Warm,Dry and Intact, No rashes Lymphatics: Normal Laboratory/Diagnostics Reviewed: 10/10/16 07:00 10/09/16 07:01 - Assessment and Plan (1) Pelvic abscess in female Acute N73.9 - FEMALE PELVIC INFLAMMATORY DISEASE, UNSPECIFIED Present on Admission: Yes Comment/Plan: The patient is hospital day #3. We will continue supportive care. We will continue broad spectrum intravenous antibiotics and monitor the patient closely. No indications for surgical intervention at this time. The current treatment plan was discussed with the patient at length. All questions were answered. She voiced understanding and agreement. - Review of Systems Yes All systems reviewed and were negative except as marked (twelve systems reviewed)
[2016-10-10] MEDS: ENOXAPARIN 60 MG/0.6 ML PFS SQ SCH (16:55)
[2016-10-11] MEDS: Metronidazole 500 mg/100 ml 500 MG/100 ML RTU IV SCH ×2 (00:57→08:16)
[2016-10-11] MEDS: Levofloxacin 750 mg/150 ml D5W 750 MG/150 ML RTU IV SCH (02:40)
[2016-10-11] MEDS: MORPHINE 2 MG/ML INJECTION IV PRN ×2 (02:45→08:16)
[2016-10-11] MEDS: NS/KCl 20 mEq 1,000 ML IV SCH ×2 (04:12→11:10)
[2016-10-11] MEDS: LORAZEPAM 1 MG TAB PO SCH ×2 (05:12→13:40)
[2016-10-11] MEDS: REGULAR INSULIN 100 UNITS/ML - 3 ML VIAL SQ SCH ×2 (05:12→11:11)
[2016-10-11] MEDS: SODIUM CHLORIDE 0.9% 3 ML FLUSH FLUSH SCH (05:12)
[2016-10-11 07:56] LABS: AUTOMATED BASOPHIL 0.5 % (0-2); AUTOMATED EOSINOPHIL 2.6 % (0-5); AUTOMATED LYMPH 23.5 % (17-44); AUTOMATED MONOCYTE 6.8 % (3-10); AUTOMATED NEUTROPHIL 66.6 % (45-76); MPV 10.4 fL (7.4-10.4)
[2016-10-11] MEDS: ONDANSETRON HCL 4 MG/2 ML VIAL IV PRN (08:16)
[2016-10-11 08:30] LABS: BLOOD UREA NITROGEN 11 MG/DL (7-17); CALC CORRECTED 9.7 MG/DL (8.4-10.2); CALCIUM 8.7 MG/DL (8.4-10.2); CALCULATED OSMOLALITY 268 MOs/Kg (270-290); CHLORIDE 102 mEq/L (98-107); GLUCOSE 90 MG/DL (70-99); SODIUM LEVEL 140 mEq/L (137-146); TOTAL PROTEIN 6.2 G/DL (6.3-8.2)
[2016-10-11] MEDS ORDERED: DIATRIZOATE MEGLMINE/SODIUM 30 ML BOTTLE PO ONE ×2 (10:33→11:49)
[2016-10-11] MEDS ORDERED: Pharmacy Review for Metformin - IV Contrast Given SCH ×4 (11:00→12:00)
[2016-10-11] MEDS: NICOTINE 7 MG PATCH TOP SCH (11:04)
--- NOTE | 2016-10-11 11:57 | PCM.SURGRO ---
- Subjective Patient: Reports: Feels better, Flatus, Bowel Movement, Afebrile. Denies: Vomiting, Shortness of breath - Objective / Physical Exam Vital Signs: Temperature: 98.4 F (10/11/16 09:18) HR: 77 (10/11/16 09:18)RR: 20 (10/11/16 09: 18) BP: 121/62 (10/11/16 09:18)Pulse Ox: 97 (10/11/16 09:18) General: Alert, Oriented x3 Respiratory: Normal - CTA Cardiovascular: Regular rate and rhythm Gastrointestinal: Soft, Bowel Sounds. negative: Distended, Tender Laboratory/Diagnostics Reviewed: Laboratory Results - last 24 hr 10/10/16 10/10/16 10/11/16 16:44 21:05 05:24 WBC RBC Hgb Hct MCV MCH MCHC RDW Plt Count MPV Neut % (Auto) Lymph % (Auto) [place] % (Auto) Eos % (Auto) Baso % (Auto) Absolute Neuts (auto) Absolute Lymphs (auto) Sodium Potassium Chloride Carbon Dioxide Anion Gap BUN Creatinine Estimated GFR (MDRD) Glucose POC Capillary Glucose 116 H 132 H 103 H Calculated Osmolality Calcium Corrected Calcium Total Bilirubin AST ALT Alkaline Phosphatase Total Protein Albumin Lipase 10/11/16 10/11/16 10/11/16 06:28 06:28 11:11 WBC 10.2 RBC 4.24 Hgb 12.0 Hct 36.5 MCV 86 MCH 28.2 MCHC 32.7 L RDW 13.6 Plt Count 218 MPV 10.4 Neut % (Auto) 66.6 Lymph % (Auto) 23.5 [place] % (Auto) 6.8 Eos % (Auto) 2.6 Baso % (Auto) 0.5 Absolute Neuts (auto) 6.73 Absolute Lymphs (auto) 2.35 Sodium 140 Potassium 4.4 Chloride 102 Carbon Dioxide 28 Anion Gap 14 BUN 11 Creatinine 0.60 Estimated GFR (MDRD) > 60 Glucose 90 POC Capillary Glucose 111 H Calculated Osmolality 268 L Calcium 8.7 Corrected Calcium 9.7 Total Bilirubin 0.2 AST 13 L ALT 26 Alkaline Phosphatase 70 Total Protein 6.2 L Albumin 3.0 L Lipase 16 L - Assessment and Plan (1) Pelvic abscess in female Acute N73.9 - FEMALE PELVIC INFLAMMATORY DISEASE, UNSPECIFIED Present on Admission: Yes Comment/Plan: Patient has continue to improve clinically. Consider transition to a course of oral antibiotics for a total of 10-14 days of antibiotics total. This can likely be completed as an outpatient. As long as she continues to clinically improve, there is no need for urgent repeat imaging were CT scan. I can follow up in the office and schedule an outpatient CT scan in approximately 1-2 weeks. The abscess was not amenable to percutaneous drainage previously after personal discussion with interventional radiology. The patient has improved clinically through her hospital course. The etiology of the abscess is not clearly defined, although diverticular disease or a gynecologic origin would be most plausible. (2) Morbid obesity with BMI of 45.0-49.9, adult Chronic E66.01 - MORBID (SEVERE) OBESITY DUE TO EXCESS CALORIES; Z68.42 - BODY MASS INDEX (BMI) 45.0-49.9, ADULT Present on Admission: Yes Comment/Plan: Increases her perioperative and periprocedural risks. (3) Abscess of sigmoid colon Acute K63.0 - ABSCESS OF INTESTINE Present on Admission: Yes Comment/Plan: Same plan as outlined above.
--- NOTE | 2016-10-11 13:22 | DIRPT ---
CLINICAL DATA: Pelvic abscess. EXAM: CT ABDOMEN AND PELVIS WITH CONTRAST TECHNIQUE: Multidetector CT imaging of the abdomen and pelvis was performed using the standard protocol following bolus administration of intravenous contrast. CONTRAST: 100 mL Isovue 370 COMPARISON: CT of the abdomen and pelvis with contrast 10/07/2016 FINDINGS: Lower chest: The lung bases are clear without focal nodule, mass, or airspace disease. The heart size is normal. There is no significant pleural or pericardial effusion. Hepatobiliary: The liver is within normal limits. The common bile duct and gallbladder are unremarkable. Pancreas: Negative Spleen: Within normal limits Adrenals/Urinary Tract: The adrenal glands are normal bilaterally. A 4 mm stone is again seen at the lower pole of the left kidney. The kidneys and ureters are otherwise unremarkable. The urinary bladder is within normal limits. Stomach/Bowel: The stomach is within normal limits. The small bowel is unremarkable. The proximal colon is normal. Inflammatory changes about the proximal sigmoid are slightly improved. Diverticular changes are again noted. The fluid collection adjacent to the distal sigmoid colon is no longer evident. Ill-defined low-density inflammatory changes persist without a discrete abscess. Vascular/Lymphatic: Within normal limits Reproductive: An IUD remains in place. Previously noted cyst in the left ovary has decreased in size. Other: No significant free fluid is evident. Musculoskeletal: The bone windows are unremarkable. IMPRESSION: 1. Decrease inflammatory changes surrounding the sigmoid colon compatible with resolving diverticulitis. 2. Diverticular changes persist. 3. Decrease inflammatory changes about the distal sigmoid without a discrete rim enhancing collection to suggest abscess. 4. IUD. Electronically Signed By: Carmelo Rucker M.D. On: 10/11/2016 13:19
[2016-10-11] MEDS: ACETAMINOPHEN 325 MG/TAB TABLET PO PRN (13:42)
[2016-10-11 14:12] VITALS: BP 124/61; PULSE 74; TEMP 98.5
--- NOTE | 2016-10-11 14:28 | PCM.DCS92 ---
- Final/Secondary Discharge Diagnosis (1) Abscess of sigmoid colon Acute K63.0 - ABSCESS OF INTESTINE Present on Admission: Yes Comment: Continue IV antibiotics supportive care. White blood cell count has returned to normal. May need to repeat CT 1-2 days to evaluate status of abscess. (2) Abdominal pain Acute R10.9 - UNSPECIFIED ABDOMINAL PAIN Present on Admission: Yes left lower quadrant R10.32 - Left lower quadrant pain Comment: Still some pain. Continue antibiotics and p.r.n. analgesics (3) Diet-controlled diabetes mellitus Acute E11.9 - TYPE 2 DIABETES MELLITUS WITHOUT COMPLICATIONS Present on Admission: Yes Comment: Would greatly benefit from weight loss. Blood sugars are relatively stable here. Will check hemoglobin A1c. She is going to be on a full liquid low carb diet (4) Morbid obesity with BMI of 45.0-49.9, adult Chronic E66.01 - MORBID (SEVERE) OBESITY DUE TO EXCESS CALORIES; Z68.42 - BODY MASS INDEX (BMI) 45.0-49.9, ADULT Present on Admission: Yes Comment: Counseled proper diet and weight loss. Morbid obesity increase her risk of perioperative complications. (5) Anxiety Acute F41.9 - ANXIETY DISORDER, UNSPECIFIED Present on Admission: Yes Comment: Smokes marijuana for this. P.r.n. anxiolytics (6) Leukocytosis Resolved D72.829 - ELEVATED WHITE BLOOD CELL COUNT, UNSPECIFIED Present on Admission: Yes unspecified D72.829 - Elevated white blood cell count, unspecified Comment: Resolved. Discharge Disposition: Home Discharge Condition: Stable Cognitive Discharge Status: Unimpaired Fuctional Discharge Status: Independent Physician Follow up/Referrals: Yong Zamora MD [Primary Care Provider] - One Week Favio Amezcua MD [Staff Physician] - 1-2 weeks New Prescriptions: Ciprofloxacin HCl [Cipro] 500 mg PO BID #20 tab Metronidazole [Flagyl] 500 mg PO TID #30 tab Discharge Home Medication List Albuterol Sulfate [Ventolin] 3 ml NEB TID PRN 10/10/12 [History Confirmed Last Taken 10/06/16 20:00] Albuterol Sulfate [Albuterol Sulfate Hfa] 1 - 2 puff INH Q4H PRN #1 each [Rx Confirmed 10/08/16 Last Taken 10/06/16 20:00] Acetaminophen Ex Str Tablet [TYLENOL EXTRA STRENGTH Tablet] 1,000 mg PO Q6H PRN 05/25/16 [History Confirmed 10/08/16 Last Taken 10/06/16 20:00] Ibuprofen [Motrin Ib] 1,200 mg PO .PRN PRN 05/25/16 [History Confirmed 10/08/16 Last Taken 10/07/16 20:00] Lorazepam [Ativan] 1 mg PO TID #30 tab 05/25/16 [Rx Confirmed 10/08/16 Last Taken 10/01/16 20:00] Nebulizer [Erapid Nebulizer] 1 each MC .UNKNOWN 05/25/16 [History Confirmed 03/19 Last Taken 10/06/16 20:00] Ondansetron HCl [Zofran] 4 mg PO Q6H PRN #20 tab 05/25/16 [Rx Confirmed Last Taken 09/29/16 12:00] Ciprofloxacin HCl [Cipro] 500 mg PO BID #20 tab 10/11/16 [Rx Last Taken Unknown] Metronidazole [Flagyl] 500 mg PO TID #30 tab 10/11/16 [Rx Last Taken Unknown] O2 Device: Room Air Diet at Discharge: Heart Healthy, [place], Low Residue Call Office For: Worsening Symptoms - DC Summary Notes Hospital Course Note:: Discharge summary on patient named MARLENE LOPEZ admitted to [facility] on 10/08/16 by Gurinder Bañuelos MD. Date of discharge is []. Total Time: 45 minutes - Physical Exam Vital Signs: Last Vital Signs Temp 98.5 F 10/11/16 14:00 Pulse 74 10/11/16 14:00 Resp 20 10/11/16 14:00 BP 124/61 10/11/16 14:00 Pulse Ox 98 10/11/16 14:00 Oxygen Pulse Oxygen Saturation 98 O2 Device Room Air Oxygen Flow Rate Fraction of Inspired Oxygen ( FIO2) Constitutional: No apparent distress, Alert, Well nourished, Well appearing Oriented to: Time, Person, Place - HEENT Head: Normal. negative: Deformity, Laceration Eye: Normal. negative: Conjunctival Injection, Pale Conjunctiva Oropharynx: Normal. negative: Membranes Dry Nose: negative: Congestion, Discharge - Respiratory/Cardiovascular Respiratory: Normal - CTA Cardiovascular: Normal - GI Auscultation: Normal Palpation: Normal Tenderness: Moderate, LLQ. negative: Guarding, Rebound - Musculoskeletal Back: Normal. negative: Abrasion, Ecchymosis Extremities: Normal, Femoral Pulse, Pedal Pulse, Radial Pulse (PALPABLE). negative: Calf Tenderness - Integumentary Skin: Warm, Dry Lymphatics: Normal. negative: Adenopathy - Neurologic Memory Impaired: Normal Motor Function: Normal Cranial Nerve: Normal Cerebellar: Normal Mood Description: Anxious Thought: Coherent Perception: Normal
== END 2016-10-11 15:34 | disposition home or self-care (01) | DRG 372 ==
LOC: ED 20:09 → MPS3 10-08 01:40
PROVIDERS: ADMIT Hospitalist; ATTEND Hospitalist
DX: K63.0 Abscess of intestine (principal); Z68.42 Body mass index [BMI] 45.0-49.9, adult; E66.01 Morbid (severe) obesity due to excess calories; E11.9 Type 2 diabetes mellitus without complications; F41.9 Anxiety disorder, unspecified; F12.10 Cannabis abuse, uncomplicated; J45.909 Unspecified asthma, uncomplicated; M19.90 Unspecified osteoarthritis, unspecified site; Z88.1 Allergy status to other antibiotic agents; Z88.0 Allergy status to penicillin; Z79.899 Other long term (current) drug therapy; F17.210 Nicotine dependence, cigarettes, uncomplicated; N73.9 Female pelvic inflammatory disease, unspecified
CPT/HCPCS: 36415; 74022; 74177; 80053; 81001; 81025; 82962; 83036; 83690; 85007; 85025; 85027; 96361; 96365; 96372; 96375; 99284; 99406; A9698; G0237; J1650; J1956; J2270; J2405; J3490; J7040